=== PATIENT | male | born 1965 | race Caucasian/White ===

== ENCOUNTER 2021-09-09 10:47 | Emergency (ER) | payer BC ==
[~2021-09-09] VITALS: Ht 162.6 cm; Wt 59.1 kg
[2021-09-09] MEDS ORDERED: ASPI81TA26 PO (11:06)
[2021-09-09] MEDS ORDERED: PERCTAB2 PO (11:06)
--- NOTE | 2021-09-09 11:22 | REP ---
INDICATION: CHEST PAIN. COMPARISON: None. TECHNIQUE: Single portable AP view of the chest was performed. FINDINGS: There is no acute infiltrate or pulmonary edema. Lungs are clear. The heart is not significantly enlarged. The mediastinal silhouette is unremarkable. The visualized osseous structures are intact. IMPRESSION: No acute pulmonary disease. <Electronically signed by Malvin Currie > 09/09/21 1115
[2021-09-09 11:30] LABS: BASO # 0.1 10^3/uL (0.0-0.2); BASO % 0.6 % (0.0-1.0); EOS # 0.1 10^3/uL (0.0-0.5); EOS % 0.7 % (0.0-3.0); HEMATOCRIT 33.1 % (42.0-52.0); HEMOGLOBIN 10.7 g/dl (13.5-17.5); LYMPH # 2.2 10^3/uL (1.5-5.0); LYMPH % 18.1 % (24.0-44.0); MEAN CORPUSCULAR HEMOGLOBIN 21.7 pg (27.0-33.0); MEAN CORPUSCULAR HGB CONC 32.3 g/dl (32.0-36.5); MEAN CORPUSCULAR VOLUME 67.1 fl (80.0-96.0); MONO # 0.4 10^3/uL (0.0-0.8); MONO % 3.4 % (2.0-8.0); NEUTROPHILS # 9.4 10^3/uL (1.5-8.5); PLATELET COUNT, AUTOMATED 221 10^3/uL (150-450); RED BLOOD COUNT 4.93 10^6/uL (4.30-6.10); WHITE BLOOD COUNT 12.2 10^3/uL (4.0-10.0)
--- OUTSIDE RECORDS SUMMARY | 2021-09-09 11:45 | CCD ---
Author Author [facility] Organization [facility] Address Unknown Phone Unavailable Care Team Providers Care Transformation Lead Name Role Phone Cassius SALINAS MD Unavailable Unavailable Cassius SALINAS MD Unavailable Unavailable Cassius SALINAS MD Unavailable Unavailable Cassius SALINAS MD Unavailable Unavailable Cassius SALINAS MD Unavailable Unavailable Cassius SALINAS MD Unavailable Unavailable Cassius SALINAS MD Unavailable Unavailable Cassius SALINAS MD Unavailable Unavailable Cassius SALINAS MD Unavailable Unavailable Wili, L Vicky PA Unavailable Unavailable Wili, L Vicky PA Unavailable Unavailable Wili, L Vicky PA Unavailable Unavailable Wili, L Vicky PA Unavailable Unavailable Wili, L Vicky PA Unavailable Unavailable Wili, L Vicky PA Unavailable Unavailable Wili, L Vicky PA Unavailable Unavailable Wili, L Vicky PA Unavailable Unavailable Wili, L Vicky PA Unavailable Unavailable Wili, L Vicky PA Unavailable Unavailable Wili, L Vicky PA Unavailable Unavailable Wili, L Vicky PA Unavailable Unavailable Wili, L Vicky PA Unavailable Unavailable Wili, L Vicky PA Unavailable Unavailable Wili, L Vicky PA Unavailable Unavailable Wili, L Vicky PA Unavailable Unavailable Wili, L Vicky PA Unavailable Unavailable Wili, L Vicky PA Unavailable Unavailable Wili, L Vicky PA Unavailable Unavailable Wili, L Vicky PA Unavailable Unavailable Wili, L Vicky PA Unavailable Unavailable Wili, L Vicky PA Unavailable Unavailable Wili, L Vicky PA Unavailable Unavailable Wili, L Vicky PA Unavailable Unavailable Wili, L Vicky PA Unavailable Unavailable Wili, L Vicky PA Unavailable Unavailable Wili, L Vicky PA Unavailable Unavailable Wili, L Vicky PA Unavailable Unavailable Wili, L Vicky PA Unavailable Unavailable Wili, L Vicky PA Unavailable Unavailable Wili, L Vicky PA Unavailable Unavailable Wili, L Vicky PA Unavailable Unavailable Wili, L Vicky PA Unavailable Unavailable Wili, L Vicky PA Unavailable Unavailable Wili, L Vicky PA Unavailable Unavailable Wili, L Vicky PA Unavailable Unavailable Wili, L Vicky PA Unavailable Unavailable Wili, L Vicky PA Unavailable Unavailable Wili, L Vicky PA Unavailable Unavailable Wili, L Vicky PA Unavailable Unavailable Wili, L Vicky PA Unavailable Unavailable Wili, L Vicky PA Unavailable Unavailable Wili, L Vicky PA Unavailable Unavailable Wili, L Vicky PA Unavailable Unavailable Wili, L Vicky PA Unavailable Unavailable Wili, L Vicky PA Unavailable Unavailable Wili, L Vicky PA Unavailable Unavailable Wili, L Vicky PA Unavailable Unavailable Wili, L Vicky PA Unavailable Unavailable Wili, L Vicky PA Unavailable Unavailable Wili, L Vicky PA Unavailable Unavailable Wili, L Vicky PA Unavailable Unavailable Wili, L Vicky PA Unavailable Unavailable Wili, L Vicky PA Unavailable Unavailable Wili, L Vicky PA Unavailable Unavailable Wili, L Vicky PA Unavailable Unavailable Wili, L Vicky PA Unavailable Unavailable Wili, L Vicky PA Unavailable Unavailable Wili, L Vicky PA Unavailable Unavailable Wili, L Vicky PA Unavailable Unavailable Wili, L Vicky PA Unavailable Unavailable Wili, L Vicky PA Unavailable Unavailable Wili, L Vicky PA Unavailable Unavailable Re-disclosure Warning The records that you are about to access may contain information from federally-assisted alcohol or drug abuse programs. If such information is present, then the following federally mandated warning applies: This information has been disclosed to you from records protected by federal confidentiality rules (42 CFR part 2). The federal rules prohibit you from making any further disclosure of this information unless further disclosure is expressly permitted by the written consent of the person to whom it pertains or as otherwise permitted by 42 CFR part 2. A general authorization for the release of medical or other information is NOT sufficient for this purpose. The Federal rules restrict any use of the information to criminally investigate or prosecute any alcohol or drug abuse patient.The records that you are about to access may contain highly sensitive health information, the redisclosure of which is protected by Article 27-F of the [facility] Public Health law. If you continue you may have access to information: Regarding HIV / AIDS; Provided by facilities licensed or operated by the [facility] Office of Mental Health; or Provided by the [facility] Office for People With Developmental Disabilities. If such information is present, then the following [facility] mandated warning applies: This information has been disclosed to you from confidential records which are protected by state law. State law prohibits you from making any further disclosure of this information without the specific written consent of the person to whom it pertains, or as otherwise permitted by law. Any unauthorized further disclosure in violation of state law may result in a fine or senior living sentence or both. A general authorization for the release of medical or other information is NOT sufficient authorization for further disc losure. Allergies and Adverse Reactions Type Description Substance Reaction Status Data Source(s ) No Known Allergies No Known Allergies [facility] Family History Family Member Name Family Member Gender Family Member Status Date o f Status Description Data Source(s) Unknown Male Problem [facility] ([facility]) Encounters Encounter Providers Location Date Indications Data Source(s ) Emergency Attender: ANNA SALINAS MDConsultant: Vicky OAKES 08/13/2020 04:10:00 PM EDT - 08/13/2020 04:48:00 PM EDT [facility] Patient discharged. Immunizations Vaccine Date Status Description Data Source(s) COVID-19 VACCINE Moderna 03/25/2021 12:00:00 AM EDT completed WVSIIS Vaccine Series Complete: YESThis Data wa s Submitted to [facility]. COVID-19 VACCINE Moderna 02/28/2021 12:00:00 AM EDT completed [facility]SIIS Vaccine Series Complete: NOThis Data was Submitted to [facility]. Medications No Information Insurance Providers Payer name Policy type / Coverage type Policy ID Covered alliance party ID Covered alliance party's relationship to gray Policy Gray Plan Information BCBS FINGERLADANILO [phone] [id number] SP [id number] SELF PAY S [facility] Community Plan Commercial [id number] Self [id number] Problems, Conditions, and Diagnoses Code Display Name Description Problem Type Effective Dates Data Source(s) Y9[address] Un[address] or not applicable Unspecified place or not applicable Diagnosis 08/13/2020 04:10:00 PM EDT [facility] [id number] Other fall from one level to another, in itial encounter Other fall from one level to another, initial encounter Diagnosis 08/13/2020 04:10:00 PM EDT [facility] Z23 Encounter for immunization Encounter for immunization Diagnosis 08/13/2020 04:10:00 PM EDT [facility] [id number] Nicotine dependence, cigarettes, uncompl icated Nicotine dependence, cigarettes, uncomplicated Diagnosis 08/13/2020 04:10:00 PM EDT [facility] [id number] Laceration without foreign body of right hand, initial encounter Laceration without foreign body of right hand, initial encounter Diagnosis 08/13/2020 04:10:00 PM EDT [facility] [id number] Unspecified injury of right wrist, hand and finger(s), initial encounter Unspecified injury of right wrist, hand and finger(s), initial encounter Diagnosis 08/13/2020 04:10:00 PM EDT [facility] Surgeries/Procedures No Information Results ID Date Data Source [id number] 08/13/2020 04:10:00 PM EDT [facility] 1 OrderSheet [facility] Emergency Department [address] [place] [address] Phone #: ext- [phone] 08/13/2020 16:02 Patient: PAVAN SUAZO Sex: M : 1965 Age: 54yWEIGHT:56.6 kg (S) HEIGHT:64 inches (S) BMI:21.4ALLERGIES: NoneCHIEF COMPLAINT: Rt, handDIAGNOSIS: Laceration - InjuryLAB ORDERSOrder Description Priority Entered Acknowledged InitialedDIAGNOSTIC STUDY ORDERSOrder Description Priority Entered Acknowledged InitialedMEDICATION/IV/DRIP/FLUID ORDERSOrder Description Priority Entered Acknowledged InitialedTdap IM 0.5 mL 16:17 08/13/2020 16:26 Remberto Fowler RN PA;GENERAL ORDERSOrder Description Priority Entered Acknowledged Initialed[Electronically signed by Niki Wyatt R.N. (17:05 08/13/2020)][Electronically signed by Ryley Alcazar (20:56 08/13/2020)][Electronically locked by Niki Wyatt R.N. (17:08/13/2020)] Name Value Range Interpretation Code Description Data Therese rce(s) Supporting Document(s) ID Date Data Source [id number] 08/13/2020 04:10:00 PM EDT [facility] 1 Medication Reconciliation Report [facility] Emergency Department [address] [place] [address] Phone #: ext- [phone] 08/13/2020 16:02 Patient: PAVAN SUAZO Sex: M : 1965 Age: 54yWeight: 56.6 kgHeight/Length: 64 in.BMI: 21.4ALLERGIES: NoneThe patient's Home Medications are listed below:NONE.The source(s) of the original Home Medication information:Not obtained.The following Medications were given to the patient in the Emergency Department:TDAP [IM] IM 0.5 mL, administered: 08/13/2020 4:26:00 PMThe following Medications were prescribed to the patient:None. Name Value Range Interpretation Code Description Data Therese rce(s) Supporting Document(s) ID Date Data Source [id number] 08/13/2020 04:10:00 PM EDT [facility] 1 Medication Administration Record [facility] Emergency Department [address] [place] [address] Phone #: ext- [phone] 08/13/2020 16:02 Patient: PAVAN SUAZO Sex: M : 1965 Age: 54yWeight: 56.6 kgHeight/Length: 64 inBMI: 21.4ALLERGIES: None Date/Time Medication Administered Medication OrderedGiven TDAP [IM] Tdap IM 0.5 mL16:26 08/13/2020 Dose: 0.5 mL Anjum Fowler RN Name Value Range Interpretation Code Description Data Therese rce(s) Supporting Document(s) ID Date Data Source [id number] 08/13/2020 04:10:00 PM EDT [facility] 1 General Instructions [facility] Emergency Department [address] [place] [address] Phone #: ext- [phone] 08/13/2020 16:02 Patient: PAVAN SUAZO Sex: M : 1965 Age: 54y Single superficial laceration to the right hand. No foreign body present.INSTRUCTIONS Protect wound and keep wound area clean. (keep clean and dry for 24 hours then,). Change dressing daily. Sutures should be removed in ten days. Do not work for five days. Your Current Medications: . No home medication. Follow-up: Follow up with your doctor in ten days for suture removal. Reason for referral: evaluation and treatment. Summary of care provided to patient and family. Understanding of the discharge instructions verbalized by patient and family. ADDITIONAL INFORMATIONLaceration: All ClosuresA laceration is a cut through the skin. This will usually require stitches (sutures) or shaggy if it is deep.Minor cuts may be treated with a surgical tape closure or skin glue. 2 General Instructions [facility] Emergency Department [address] [place] [address] Phone #: ext- [phone] 08/13/2020 16:02 Patient: PAVAN SUAZO Sex: M : 1965 Age: 54yHome care Your healthcare provider may prescribe an antibiotic. This is to help prevent infection. Follow all instructions for taking this medicine. Take the medicine every day until it is gone or you are told to stop. You should not have any left over. The healthcare provider may prescribe medicines for pain. If no pain medicines were prescribed, you can use uuae-rbo-jwuukql pain medicines. Follow instructions for taking any pain medicines. (Note: If you have chronic liver or kidney disease, or ever had a stomach ulcer or g astrointestinal bleeding, talk with your doctor before using these medicines.) Follow the healthcare provider's instructions on how to care for the cut. Keep the wound clean and dry. Do not get the wound wet until you are told it is OK to do so. If the area gets wet, gently pat it dry with a clean cloth. Replace the wet bandage with a dry one. If a bandage was applied and it becomes wet or dirty, replace it. Otherwise, leave it in place for the first 24 hours. Caring for sutures or shaggy: Once you no longer need to keep them dry, clean the wound daily. First, remove the bandage. Then wash the area gently with soap and warm water, or as directed by the healthcare provider. Use a wet cotton swab to loosen and remove any blood or crust that forms. After cleaning, apply a thin layer of antibiotic ointment if advised. Then put on a new bandage unless you are told not to. Caring for skin glue: Don't put apply liquid, ointment, or cream on the wound while the glue is 3 General Instructions [facility] Emergency Department [address] [place] [address] Phone #: [phone]- [phone] 08/13/2020 16:02 Patient: PAVAN SUAZO Sex: M : 1965 Age: [address] Avoid activities that cause heavy sweating. Protect the wound from sunlight. Do not scratch, rub, or pick at the adhesive film. Do not place tape directly over the film. The glue should peel off within 5 to 10 days. Caring for surgical tape: Keep the area dry. If it gets wet, blot it dry with a clean towel. Surgical tape usually falls off within 7 to 10 days. If it has not fallen off after 10 days, you can take it off yourself. Put mineral oil or petroleum jelly on a cotton ball and gently rub the tape until it is removed. Once you can get the wound wet, you may shower as usual but do not soak the wound in water (no tub baths or swimming) Even with proper treatment, a wound infection may sometimes occur. Check the wound daily for signs of infection listed below.Scalp woundsDuring the first 2 days, you may carefully rinse your hair in the shower to remove blood, glass or dirtparticles. After two days, you may shower and shampoo your hair normally. Do not soak your scalp inthe tub or go swimming until the stitches or shaggy have been removed. Talk with your healthcareprovider before applying any antibiotic ointment to the wound.Mouth woundsEat soft foods to reduce pain. If the cut is inside of your mouth, clean by rinsing after each meal andat bedtime with a mixture of equal parts water and hydrogen peroxide (do not swallow!). Or, you canuse a cotton swab to directly apply hydrogen peroxide onto the cut. You may also be prescribed achlorhexidine solution to rise with. Mouth wounds can be painful when eating. You may use pikaba-ruz-vybhaio local numbing solution for pain relief. If this is not available, you may use anynumbing solution intended for teething babies. You may apply this directly to the sores with acotton-tip swab or with your finger.Follow-up careFollow up with your healthcare provider as advised. Ask your healthcare provider how long suturesshould be left in place. Be sure to return for suture removal as directed. If dissolving stitches wereused in the mouth, these should fall out or dissolve without the need for removal. If tape closureswere used, remove them yourself when your provider recommends if they have not fallen off on theirown. If skin glue was used, the film will wear off by itself. Generally, you should keep healing woundsout of direct sunlight for the first couple of months to try to lessen scarring.When to seek medical adviceCall your healthcare provider right away if any of these occur: 4 General Instructions [facility] Emergency Department [address] [place] [address] Phone #: [phone] 08/13/2020 16:02 Patient: PAVAN SUAZO Sex: M : 1965 Age: 54y Signs of infection, including increasing pain in the wound, increasing wound redness or swelling, or pus or bad odor coming from the wound Fever of 100.4F (38.C) or higher, or as directed by your healthcare provider Stitches or shaggy come apart or fall out or surgical tape falls off before 7 days Wound edges reopen Wound changes colors Numbness around the wound after any numbing medicine should have worn off Decreased movement around the injured areaCall 911Call 911 if you can't control the wound bleeding with direct pressure. 1999- 2017 [employer]. [address] [place] [address]. All rights reserved. This information is not intended as asubstitute for professional medical care. Always follow your healthcare professional's instructions.Bandage ChangeIf the bandage becomes wet or dirty, replace it. Otherwise, leave it in place for the first 24 hours.Then once a day: Remove the bandage and wash the area with soap and water. Use a wet cotton swab to loosen and remove any blood or crust that forms on the wound. After cleaning, apply a thin layer of antibiotic ointment or cream. Put the bandage back on.You can shower as usual after the first 24 hours. If the bandage is on an arm or leg, cover it with aplastic bag rubber-banded at both ends before showering. Take care that the rubber bands are nottoo tight, cutting off circulation to the affected area.Don't take a tub bath or go swimming until the bandage is removed and the wound healed. This willtake at least 7 days.When to seek medical adviceCall your healthcare provider right away if any of these occur with your wound: Fever Redness, warmth, or swelling Pain in the wound gets worse 5 General Instructions [facility] Emergency Department [address] [place] [address] Phone #: ext- [phone] 08/13/2020 16:02 Patient: PAVAN SUAZO Sex: M : 1965 Age: 54y Pus drains when you remove the bandage Red streaks surround the wound area [phone] [employer]. [address] [place] [address]. All rights reserved. This information is not intended as asubstitute for professional medical care. Always follow your healthcare professional's instructions.Extremity Laceration: Stitches, Shaggy, or TapeA laceration is a cut through the skin. If it is deep, it may require stitches or shaggy to close so it canheal. Minor cuts may be treated with surgical tape closures, or skin glue.X-rays may be done if something may have entered the skin through the cut. You may also need atetanus shot if you are not up to date on this vaccine.Home care Follow the healthcare provider's instructions on how to care for the cut. Wash your hands with soap and warm water before and after caring for your wound. This is to help prevent infection. Keep the wound clean and dry. If a bandage was applied and it becomes wet or dirty, replace it. Otherwise, leave it in place for the first 24 hours, then change it once a day or as directed. If stitches or shaggy were used, clean the wound daily: o After removing the bandage, wash the area with soap and water. Use a wet cotton swab to loosen and remove any blood or crust that forms. o After cleaning, keep the wound clean and dry. Talk with your healthcare provider before putting any antibiotic ointment on the wound. Reapply the bandage. You may remove the bandage to shower as usual after the first 24 hours, but don't soak the area in water (no swimming) until the stitches or shaggy are removed. If surgical tape closures were used, keep the area clean and dry. If it becomes wet, blot it dry with a towel. Let the surgical tape fall off on its own. The healthcare provider may prescribe an antibiotic cream or ointment to prevent infection. He or she may also prescribe an antibiotic pill. Don't stop taking this medicine until you have finished it all or the provider tells you to stop. The provider may also prescribe medicine for pain. Follow the instructions for taking these medicines. Don't do activities that may reopen your wound. 6 General Instructions [facility] Emergency Department [address] [place] [address] Phone #: ext- [phone] 08/13/2020 16:02 -------- Patient: PAVAN SUAZO Sex: M : 1965 Age: 54yFollow-up careFollow up with your healthcare provider, or as advised. Most skin wounds heal within 10 days. But aninfection may sometimes occur even with proper treatment. Check the wound daily for the signs ofinfection listed below. Stitches and shaggy should be removed within 7 to14 days. If surgical tapeclosures were used, you may remove them after 10 days if they have not fallen off by then.When to seek medical adviceCall your healthcare provider right away if any of these occur: Wound bleeding not controlled by direct pressure Signs of infection, including increasing pain in the wound, increasing wound redness or swelling, or pus or bad odor coming from the wound Fever of 100.4F (38C) or higher, or as directed by your healthcare provider Stitches or shaggy come apart or fall out or surgical tape falls off before 7 days Wound edges reopen Wound changes colors Numbness occurs around the wound Decreased movement around the injured area [phone] [employer]. [address] [place] [address]. All rights reserved. This information is not intended as asubstitute for professional medical care. Always follow your healthcare professional's instructions. You have been given the following additional information: Laceration: All Closures Dressing Change Laceration, Extremity: Stitches, Staple, or Tape Do not work for five days.(Electronically signed by CHAMP Evans 08/13/2020 20:56) Name Value Range Interpretation Code Description Data Therese rce(s) Supporting Document(s) ID Date Data Source [id number] 08/13/2020 04:10:00 PM EDT [facility] 1 Clinical Report - Nurses [facility] Emergency Department [address] [place] [address] Phone #: ext- [phone] 08/13/2020 16:02 Patient: PAVAN SUAZO Sex: M : 1965 Age: 54yTRIAGEArrived by private vehicle. Historian: patient. Accompanied by family. ( fell off roof and right handcaught on dior screw).Acuity: LEVEL 4.Chief Complaint: FALL. Slipped.(off roof and landed on a person in a bucket).Alert.Pre-hospital notification of patient arrival was not received.Location of injuries: right hand.Treatment TOP TAPER MACHINE:None.SEPSIS SCREEN: SIRS Screen negative. Sepsis Screen negative. No suspected or confirmed signs ofinfection present. --16:09 08/13/20 Bianca Hurtado R.N.16:04 08/13/20. BP: 105/73. MAP: 83. HR: 72. RR: 18. O2 saturation: 94%. Temp: 98.4 F. Pain level now:12/29. --16:09 08/13/20 Bianca Hurtado R.N.Weight: 56.6 kg stated. Height/Length: 64 i nches Per Patient. BMI: 21.4. --16:03 08/13/20 Bianca Hurtado R.N.MedicationsNone. --16:06 08/13/20 Bianca Hurtado R.N.AllergiesNone. --16:06 08/13/20 Bianca Hurtado R.N.PROBLEMS:Palpitations.Back Pain. --16:07 08/13/20 Bianca Hurtado R.N.ADDITIONAL SURGERIES:Back Surgery. --16:07 08/13/20 Bianca Hurtado R.N.HistoryPAST MEDICAL HX: Last tetanus: (needs tetanus). Immunizations: up-to-date.SOCIAL HX: Heavy tobacco smoker- less than 1 pack per day. No alcohol use or drug use. He wasoffered HIV testing but declined and hepatitis C testing but declined. He has not traveled outside the [place] 2 Clinical Report - Nurses [facility] Emergency Department [address] [place] [address] Phone #: ext- [phone] 08/13/2020 16:02 [id number] Sex[facility] M : 1965 Age: 54y Infectious disease exposure: No infectious disease exposure. Patient is not a known carrier of tuberculosis, hepatitis, HIV, MRSA or VRE. Patient is not a known carrier of CRE. SELF HARM ASSESSMENT: Self harm assessment was performed. The patient answered "no" to the question(s) "Have you recently felt down, depressed, or hopeless?", "Do you have thoughts of harming or killing yourself?", "Do you have a plan for harming or killing yourself?", "Have you recently had thoughts about harming or killing others?", "Do you have any dangerous items in your possession?", "Have you noticed less interest or pleasure in doing things?", "Are you here because you tried to hurt yourself?" and "Have you ever tried to hurt yourself before today?". ABUSE ASSESSMENT: Abuse assessment. Abuse denied. No suspicion of abuse. No report of abuse. NUTRITIONAL RISK ASSESSMENT: The nutritional risk assessment revealed no deficiencies. FUNCTIONAL ASSESSMENT: Functional assessment: no impairments noted. LEARNING NEEDS ASSESSMENT: The learning needs assessment revealed no barriers. FALL RISK ASSESSMENT: Fall risk assessment completed. No risk factors identified. SKIN INTEGRITY ASSESSMENT: Skin integrity risk assessment completed. No skin integrity risk identified. --16:09 08/13/20 Bianca Hurtado R.N. Interventions Identification band on patient. To treatment room. --16:09 08/13/20 Bianca Hurtado R.N.PHYSICAL ASSESSMENTGENERAL / NEURO / PSYCH: Alert. Oriented X 4.HEENT: Head non-tender.RESPIRATORY: Respirations not labored. Chest nontender. Breath sounds within normal limits.CVS: Normal heart rate and rhythm. Pulses within normal limits. Capillary refill less than 2 seconds.GI / : Abdomen soft and nontender.EXTREMITIES: Right hand. Thenar eminence, right hand: subcutaneous 2.0 cm laceration with controlledbleeding.SKIN: Skin is warm and dry. --16:10 08/13/20 Bianca Hurtado R.N.NURSING PROGRESS NOTESReassurance given. Two patient identifiers checked. Call light placed in reach. Side rails up x 2. Bedplaced in lowest position. Brakes of bed on. Patient ready for evaluation- PA notified. --16:09 08/13/20Bianca Hurtado R.N. 16:26 08/13/2020 TDAP IM 0.5 mL given(Lot#: [id number], expiration date: 07/18/2022, [employer] Manager: [employer]). Given in the left deltoid. Allergies verified and confirmed 5 rights. Information reviewed with patient. --16:26 08/13/20 Remberto Fowler RN. 3 Clinical Report - Nurses [facility] Emergency Department [address] [place] [address] Phone #: ext- [phone] 08/13/2020 16:02 Patient: PAVAN SUAZO Sex: M : 1965 Age: 54yDISPOSITION / DISCHARGE Departure time: late entry - 16:48 08/13/2020. Condition at departure: stable. No learning barriers present. Discharge instructions provided and reviewed with the patient. Reviewed warnings (please see paper copy). Reviewed wound care instructions. Patient verbalized understanding. Written instructions provided in Maltese. ( Sutures should be removed in 10 days). The patient was discharged by the physician physician assistant. He was discharged home and accompanied by family. He left ambulatory and via private vehicle. Family member driving. --17:05 08/13/20 Niki Wyatt R.N. 16:48 08/13/20. BP: 102/69. MAP: 80. HR: 68. RR: 18. O2 saturation: 95% on room air. Temp: 98.7 F (oral). Pain level now: 11/28. --17:05 08/13/20 Niki Wyatt R.N.Locked/Released at 08/13/2020 17:05 by Niki Wyatt R.N. Name Value Range Interpretation Code Description Data Therese rce(s) Supporting Document(s) ID Date Data Source [id number] 0001 08/13/2020 04:10:00 PM EDT [facility] 1 Clinical Report - Physicians/Mid Levels [facility] Emergency Department [address] [place] [address] Phone #: ext [phone] 08/13/2020 16:02 Patient: PAVAN SUAZO Sex: M : 1965 Age: 54y Time Seen: 16:10 08/13/2020. Arrived- By private vehicle. Historian- patient.HISTORY OF PRESENT ILLNESS Chief Complaint: Injury to the right hand. The injury happened just prior to arrival. The patient sustained a laceration. Occurred at work. Patient is not experiencing pain. No injury to the head or neck or other injury.REVIEW OF SYSTEMSThe patient sustained a single laceration to the right hand. No swelling, tingling, numbness, weakness or foreign body.PAST HISTORYProblems:Palpitations.Back Pain. Additional Surgeries: Back Surgery. Medications: None. Allergies: None.SOCIAL HISTORYHeavy tobacco smoker (cigarette)- less than 1 pack per day. No alcohol use or drug use.PHYSICAL EXAMVital Signs: 08/13/2020 16:04 BP: 105/73. MAP: 83. HR: 72. RR: 18. O2 saturation: 94%. Temp: 98.4 F.Pain level now: 2/10. Have been reviewed as normal. Oxygen saturation normal.Appearance: Alert. Oriented X3. No acute distress.Head: Head atraumatic.Eyes: Pupils equal, round and reactive to light. Eyes normal inspection.ENT: Ears normal. Nose normal. Pharynx normal.Neck: Normal inspection.CVS: Normal heart rate.Respiratory: No respiratory distress.Abdomen: No visible injury. 2 Clinical Report - Physicians/Mid Levels [facility] Emergency Department [address] [place] [address] Phone #: ext- [phone] 08/13/2020 16:02 Patient: PAVAN SUAZO [facility]#: [id number] Sex: M : 1965 Age: 54y Back: Normal inspection. Skin: Skin warm and dry. Extremities: Right palm: subcutaneous 1.5 cm laceration with active bleeding of the central aspect of the palm. Neurovascular intact distally. No limitation in movement. Extremities otherwise negative. Neuro, Vascular and Tendons: Vascular status intact. Sensation intact. Motor intact. Tendon function intact. Neuro: Oriented X 3.PROGRESS AND PROCEDURESLaceration Repair: Time: 16:42 08/13/2020. Location: right hand. Length: 1.5cm. Complexity: simple(sutured).Wound depth/shape- subcut aneous. Distal neuro/vascular/tendon status normal. Local anesthesiaprovided using 1% lidocaine (2 mL). Prepped with Betadine. Wound cleansed and irrigated extensivelywith normal saline. Closure of skin: interrupted 4-0 Prolene (3 sutures). Post-procedure: he is stable andthere are no complications. Bleeding is controlled and neuro-vascular status is intact distal to the wound.Dressing applied. Tetanus immunization given. Course of Care: 16:Aug 13 2020. Evaluation after observation. (Discussed wound care and pt consents to suture, s/s of infection and dressing changes discussed.). Patient counseled in person regarding the patient's stable condition, diagnosis and need for follow-up. Patient agrees with plan of care. 16:42 Aug 13 2020. Disposition: Discharged home in good and improved condition (16:43 Aug 13 2020).CLINICAL IMPRESSION Single superficial laceration to the right hand. No foreign body present.INSTRUCTIONS Protect wound and keep wound area clean. (keep clean and dry for 24 hours then,). Change dressing daily. Sutures should be removed in ten days. Do not work for five days. Your Current Medications: . No home medication. Follow-up: Follow up with your doctor in ten days for suture removal. Reason for referral: evaluation and treatment. Summary of care provided to patient and family. Understanding of the discharge instructions verbalized by patient and family. 3 Clinical Report - Physicians/Mid Levels [facility] Emergency Department [address] [place] [address] Phone #: ext- [phone] 08/13/2020 16:02 Patient: PAVAN SUAZO Sex: M : 1965 Age: 54y(Electronically signed by CHAMP Evans 08/13/2020 20:56) Name Value Range Interpretation Code Description Data Therese rce(s) Supporting Document(s) Procedure Social History No Information
[2021-09-09 12:11] LABS: ALBUMIN 3.7 GM/DL (3.2-5.2); ALT/SGPT 24 U/L (12-78); BILIRUBIN,TOTAL 0.4 MG/DL (0.2-1.0); BLOOD UREA NITROGEN 18 MG/DL (7-18); CALCIUM LEVEL 8.9 MG/DL (8.5-10.1); CARBON DIOXIDE LEVEL 24 MEQ/L (21-32); CHLORIDE LEVEL 114 MEQ/L (98-107); CK-MB VALUE MASS < 1.0 NG/ML (<3.6); CPK CREATINE PHOSPHOKINASE 99 U/L (39-308); CREATININE FOR GFR 0.91 MG/DL (0.70-1.30); GLOMERULAR FILTRATION RATE > 60.0 (>56); GLUCOSE, FASTING 109 MG/DL (70-100); MB/CK RELATIVE INDEX 1.01 (< OR =4); NT-PRO BNP 65 PG/ML (<125); POTASSIUM SERUM 4.1 MEQ/L (3.5-5.1); SODIUM LEVEL 144 MEQ/L (136-145); TOTAL PROTEIN 6.3 GM/DL (6.4-8.2); TROPONIN I < 0.02 NG/ML (< 0.10)
[2021-09-09] MEDS ORDERED: GASTROGRAFIN SOLUTION 30ML PO SCH (12:15)
[2021-09-09] MEDS ORDERED: NS 1,000 ML IV ONE (12:20)
[2021-09-09] MEDS ORDERED: ISOVUE-370 76% 100ML VIAL As Ordered ONE (12:28)
--- NOTE | 2021-09-09 12:53 | REP ---
INDICATION: abdominal pain. COMPARISON: None. TECHNIQUE: Standard helical technique after the intravenous administration of 100 cc Isovue 370 FINDINGS: Minimal fibrotic changes are seen in the lung bases. There is mild cylindrical bronchiectasis. There are no pleural or pericardial effusions. The liver, gallbladder, spleen, pancreas, adrenal glands, and left kidney are within normal limits. In the superior pole the right kidney there is a round 4.1 cm sized low-density lesion which has water density Hounsfield unit readings and shows no evidence of enhancement. This is a simple cyst. The abdominal aorta and para-aortic regions are within normal limits. The bowel loops and the mesenteries are within normal limits. There is no evidence of a mass or adenopathy. There is no free fluid or free air. Bone window technique throughout the examination shows the osseous structures to be within normal limits. IMPRESSION: There is a simple Bosniak class 1 right renal cyst as described above. The examination is otherwise unremarkable. <Electronically signed by Bhargav Schulz > 09/09/21 [id number]
[2021-09-09 14:31] LABS: CK-MB VALUE MASS < 1.0 NG/ML (<3.6); CPK CREATINE PHOSPHOKINASE 90 U/L (39-308); MB/CK RELATIVE INDEX 1.11 (< OR =4); TROPONIN I < 0.02 NG/ML (< 0.10)
[2021-09-09 15:15] VITALS: BP 107/78
[2021-09-09] MEDS ORDERED: OMEP10CASR PO (15:28)
[2021-09-09] MEDS ORDERED: PANTOPRAZOLE 40MG VIAL (C9113 PER 1) IV ONE (15:30)
--- NOTE | 2021-09-10 06:35 | ECGEPIP ---
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
== END 2021-09-09 16:09 | disposition home or self-care (01) ==
LOC: M ED 10:47
DX: K21.9 Gastro-esophageal reflux disease without esophagitis (principal); R07.89 Other chest pain; E86.0 Dehydration; N28.1 Cyst of kidney, acquired; F17.200 Nicotine dependence, unspecified, uncomplicated; Z79.899 Other long term (current) drug therapy
CPT/HCPCS: 36415; 71045; 74177; 80053; 82550; 82553; 83880; 84484; 85025; 93005; 93041; 94760; 96361; 96374; 99285; C9113; Q9967

== ENCOUNTER 2022-01-05 12:35 | Emergency (ER) | payer OTHER, SELFPAY ==
[~2022-01-05] VITALS: Ht 162.6 cm; Wt 58.8 kg
[~2022-01-05 12:35] MED LIST: ASPI81TA26 PO; OMEP10CASR PO; PERCTAB2 PO
[2022-01-05 12:36] VITALS: BP 124/86
[2022-01-05] MEDS ORDERED: IBUP80TA (12:43)
[2022-01-05] MEDS ORDERED: OXYC-517 (12:43)
[2022-01-05] MEDS ORDERED: LIDOCAINE 2% MDV 20ML VIAL SC ONE (19:00)
[2022-01-05] MEDS ORDERED: BACITRACIN OINTMENT 30GM TUBE TOP ONE (19:30)
== END 2022-01-05 19:58 | disposition home or self-care (01) ==
LOC: M ED 12:35
DX: S61.213A Laceration without foreign body of left middle finger without damage to nail, initial encounter (principal); W22.8XXA Striking against or struck by other objects, initial encounter; I51.9 Heart disease, unspecified; F17.200 Nicotine dependence, unspecified, uncomplicated; Y92.9 Unspecified place or not applicable; Y93.9 Activity, unspecified; Y99.0 Civilian activity done for income or pay

== ENCOUNTER → 2024-05-30 | Outpatient (REF) ==
[~2024-05-30] MED LIST changes: +IBUP80TA; +OXYC-517
== END ==
LOC: M SLEEP HO 10:00
PROVIDERS: ATTEND Physician Assistant
DX: G47.33 Obstructive sleep apnea (adult) (pediatric) (principal)

== ENCOUNTER → 2025-06-29 | Outpatient (CLI) | payer BC ==
[~2025-06-29] MED LIST changes: +QUET50TA4
== END ==
LOC: M RAD 06:49
PROVIDERS: ATTEND Registered Nurse
DX: K76.0 Fatty (change of) liver, not elsewhere classified (principal); N28.1 Cyst of kidney, acquired